=== PATIENT | male | born 1970 | race Caucasian/White ===

== ENCOUNTER 2016-09-03 07:30 | Emergency (ER) | payer OTHER ==
[~2016-09-03] VITALS: Ht 177.8 cm; Wt 79.4 kg
[2016-09-03] MEDS ORDERED: IV NORMAL SALINE 1000ML BAG 1,000 ML IV SCH (07:44)
--- NOTE | 2016-09-03 08:02 | PHYS DOC ---
Adult General Chief Complaint Chief Complaint: COUGH HPI HPI Patient is a 46 year old male who presents with complaint of cough, fever, and pleuritic chest pain. Patient states that his symptoms started 3 days ago. Patient states that he has had aches, chills, cough, and fatigue upon onset of symptoms. Patient states that he felt his symptoms were viral and tried taking Motrin to help. Patient states however over the past 24 hours he has developed worsening pain with cough which he states is across his chest. Patient states that the pain is severe when he coughs but states he is not having pain at rest. Patient denies any significant past medical history. Patient states that he has a child who had similar symptoms though not as severe as his presentation. Patient states that he had a fever of 102F at 0630 and took Motrin at that time. Review of Systems Review of Systems Constitutional: Fever, chills [] Eyes: Denies change in visual acuity, redness, or eye pain [] HENT: Sore throat [] Respiratory: Cough, denies shortness of breath [] Cardiovascular: Pleuritic chest pain, denies edema [] GI: Denies abdominal pain, nausea, vomiting, bloody stools or diarrhea [] : Denies dysuria or hematuria [] Musculoskeletal: Myalgias [] Integument: Denies rash or skin lesions [] Neurologic: Headache, denies focal weakness or sensory changes [] Current Medications Current Medications Current Medications Medications (Trade) Dose Ordered Sig/Zainab Start Time Stop Time Status Last Admin Dose Admin Ketorolac Tromethamine (Toradol) 30 mg 1X ONCE 09/03/16 08:15 09/03/16 08:16 DC 09/03/16 08:08 30 MG Sodium Chloride 1,000 ml @ 1,000 mls/hr Q1H 09/03/16 07:44 09/03/16 08:43 DC 09/03/16 07:58 1,000 MLS/HR Allergies Allergies Allergies Coded Allergies Type Severity Reaction Last Updated Verified No Known Drug Allergies 09/03/16 No Physical Exam Physical Exam Constitutional: Alert, febrile, diaphoretic, appears ill. [] HENT: Normocephalic, atraumatic, bilateral external ears normal, oropharynx erythematous, no oral exudates, nose normal. [] Eyes: PERRLA, EOMI, conjunctiva normal, no discharge. [] Neck: Normal range of motion, no tenderness, supple, no stridor. [] Cardiovascular:Heart rate regular rhythm, no murmur [] Lungs & Thorax: None restricted air movement bilaterally, minimal rales in left lower lobe, no wheezes [] Abdomen: Bowel sounds normal, soft, no tenderness, no masses, no pulsatile masses. [] Skin: Warm, diaphoretic, no erythema, no rash. [] Back: No tenderness, no CVA tenderness. [] Extremities: No tenderness, no cyanosis, no clubbing, ROM intact, no edema. [] Neurologic: Alert and oriented X 3, normal motor function, normal sensory function, no focal deficits noted. [] Current Patient Data Vital Signs Vital Signs Date Time Temp Pulse Resp B/P (MAP) Pulse Ox O2 Delivery O2 Flow Rate FiO2 09/03/16 08:19 66 22 125/65 (85) 96 Room Air 09/03/16 07:39 101.0 101.0 Lab Values Laboratory Tests Test 09/03/16 07:50 White Blood Count 5.7 x10^3/uL (4.0-11.0) Red Blood Count 4.95 x10^6/uL (4.30-5.70) Hemoglobin 15.4 g/dL (13.0-17.5) Hematocrit 45.6 % (39.0-53.0) Mean Corpuscular Volume 92 fL (79-100) Mean Corpuscular Hemoglobin 31 pg (25-35) Mean Corpuscular Hemoglobin Concent 34 g/dL (31-37) Red Cell Distribution Width 13.3 % (11.5-14.5) Platelet Count 117 x10^3/uL (140-400) L Neutrophils (%) (Auto) 86 % (31-73) H Lymphocytes (%) (Auto) 6 % (24-48) L Monocytes (%) (Auto) 8 % (0-9) Eosinophils (%) (Auto) 0 % (0-3) Basophils (%) (Auto) 0 % (0-3) Neutrophils # (Auto) 4.9 x10^3uL (1.8-7.7) Lymphocytes # (Auto) 0.3 x10^3/uL (1.0-4.8) L Monocytes # (Auto) 0.5 x10^3/uL (0.0-1.1) Eosinophils # (Auto) 0.0 x10^3/uL (0.0-0.7) Basophils # (Auto) 0.0 x10^3/uL (0.0-0.2) Segmented Neutrophils % 54 % (35-66) Band Neutrophils % 33 % (0-9) H Lymphocytes % 4 % (24-48) L Monocytes % 9 % (0-10) Platelet Estimate Adequate (ADEQUATE) Large Platelets D-Dimer (Riri) 0.40 ug/mlFEU (0.00-0.50) Sodium Level 139 mmol/L (136-145) Potassium Level 4.1 mmol/L (3.5-5.1) Chloride Level 104 mmol/L (98-107) Carbon Dioxide Level 24 mmol/L (21-32) Anion Gap 11 (6-14) Blood Urea Nitrogen 21 mg/dL (8-26) Creatinine 1.1 mg/dL (0.7-1.3) Estimated GFR (Cockcroft-Gault) 72.1 BUN/Creatinine Ratio 19 (6-20) Glucose Level 119 mg/dL (70-99) H Calcium Level 8.7 mg/dL (8.5-10.1) Magnesium Level 1.7 mg/dL (1.8-2.4) L Total Bilirubin 0.5 mg/dL (0.2-1.0) Aspartate Amino Transferase (AST) 41 U/L (15-37) H Alanine Aminotransferase (ALT) 61 U/L (16-63) Alkaline Phosphatase 55 U/L (46-116) Creatine Kinase 144 U/L (39-308) Creatine Kinase MB (Mass) 1.6 ng/mL (0.0-3.6) Creatine Kinase MB Relative Index 1.1 % (0-4) Troponin I Quantitative < 0.017 ng/mL (0.000-0.055) Total Protein 7.2 g/dL (6.4-8.2) Albumin 3.5 g/dL (3.4-5.0) Albumin/Globulin Ratio 0.9 (1.0-1.7) L Influenza Type A Antigen Negative (NEGATIVE) Influenza Type B Antigen Negative (NEGATIVE) Group A Streptococcus Rapid Negative (NEGATIVE) Laboratory Tests 09/03/16 07:50 Laboratory Tests 09/03/16 07:50 EKG EKG Interpreted by me: Heart rate 81, sinus rhythm, normal intervals, normal axis, no acute ST/T-wave abnormalities present [] Radiology/Procedures Radiology/Procedures [facility] [address] [place] [address] IMAGING REPORT Signed PATIENT: ZAHRA MELCHOR ACCOUNT: [id number] : 1970 LOCATION: ER AGE: 46 SEX: M EXAM STATUS: REG ER ORD. PHYSICIAN: ALBERTO PARDO MD REASON: chest pain with cough PROCEDURE: CHEST PA & LATERAL EXAM: CHEST 2 VIEWS History: Chest pain with cough COMPARISON: None available. TECHNIQUE: PA and lateral chest radiographs FINDINGS: The cardiomediastinal silhouette is within normal limits. The lungs are clear bilaterally. The costophrenic sulci are clear and well demarcated bilaterally. IMPRESSION: No radiographic evidence of an acute cardiopulmonary abnormality. DICTATED and SIGNED BY: MADINA COLON MD DATE: 09/03/16 0858 CC: MAUDE OATES; ALBERTO PARDO MD ~ [] Course & Med Decision Making Course & Med Decision Making Pertinent Labs and Imaging studies reviewed. (See chart for details) Patient started on IV fluids and given IV Toradol for symptoms. On reevaluation , patient's symptoms have improved. Patient's symptoms appear consistent with acute viral febrile illness. Patient's d-dimer and cardiac enzymes were unremarkable. Patient's chest x-ray does not reveal evidence of acute pneumonia. Patient's pain appears consistent with acute pleurisy. Patient will be started on Medrol Dosepak and patient was provided with a small prescription of Immaculata to help with pain and cough. Advised close follow-up with patient's primary doctor in 3-4 days and recommended return to the emergency department for any worsening symptoms. Patient voiced understanding and in agreement with treatment plan. Dragon Disclaimer Dragon Disclaimer This electronic medical record was generated, in whole or in part, using a voice recognition dictation system. Departure Departure Impression: Primary Impression: Pleurisy Additional Impression: Upper respiratory infection Disposition: HOME, SELF-CARE Condition: IMPROVED Referrals: MAUDE OATES (PCP) Patient Instructions: Pleurisy, Upper Respiratory Infection, Adult Additional Instructions: Follow-up to primary doctor in 3-4 days if symptoms are not improving. Return to the emergency department for any worsening symptoms. Scripts Hydrocodone/Apap 5-325 (NORCO 5-325 TABLET) 1 Each Tablet 1-2 TAB PO Q4-6HRS Y for COUGH, #15 TAB Prov: ALBERTO PARDO MD 09/03/16 Methylprednisolone (MEDROL) 4 Mg Tab.ds.pk 1 PKG PO UD, #1 PKG Prov: ALBERTO PARDO MD 09/03/16 Problem Qualifiers Additional Impression: Upper respiratory infection URI type: unspecified URI Qualified Codes: J06.9 - Acute upper respiratory infection, unspecified ALBERTO PARDO MD September 03, 2016 08:02
[2016-09-03 08:10] LABS: BASO % 0 % (0-3); EOS % 0 % (0-3); HEMATOCRIT 45.6 % (39.0-53.0); HEMOGLOBIN 15.4 g/dL (13.0-17.5); LYMPH # 0.3 x10^3/uL (1.0-4.8); LYMPH % 6 % (24-48); MEAN CORPUSCULAR HEMOGLOBIN 31 pg (25-35); MEAN CORPUSCULAR HGB CONC 34 g/dL (31-37); MEAN CORPUSCULAR VOLUME 92 fL (79-100); MONO % 8 % (0-9); NEUT % 86 % (31-73); PLATELET COUNT 117 x10^3/uL (140-400); RED BLOOD COUNT 4.95 x10^6/uL (4.30-5.70); RED CELL DISTRIBUTION WIDTH 13.3 % (11.5-14.5); WHITE BLOOD COUNT 5.7 x10^3/uL (4.0-11.0)
[2016-09-03] MEDS ORDERED: KETOROLAC TROMETHAMINE 30 MG/ML INJ. IV ONE (08:15)
[2016-09-03 08:19] VITALS: BP 125/65
[2016-09-03 08:23] LABS: OBC FLU VALID
[2016-09-03 08:34] LABS: CALCIUM 8.7 mg/dL (8.5-10.1); CKMB MASS 1.6 ng/mL (0.0-3.6); CREATININE 1.1 mg/dL (0.7-1.3); GFR 72.1; POTASSIUM 4.1 mmol/L (3.5-5.1)
[2016-09-03 08:37] LABS: ALBUMIN 3.5 g/dL (3.4-5.0); ALBUMIN/GLOBULIN RATIO 0.9 (1.0-1.7); MAGNESIUM 1.7 mg/dL (1.8-2.4); TOTAL BILIRUBIN 0.5 mg/dL (0.2-1.0); TOTAL PROTEIN 7.2 g/dL (6.4-8.2)
[2016-09-03 08:52] LABS: NEGATIVE OBC STREP NEG; POSITIVE OBC STREP POS
[2016-09-03] MEDS ORDERED: HYDR-971 PO (08:54)
[2016-09-03] MEDS ORDERED: METH4TAB2 PO (08:54)
--- NOTE | 2016-09-03 09:01 | RAD ---
EXAM: CHEST 2 VIEWS History: Chest pain with cough COMPARISON: None available. TECHNIQUE: PA and lateral chest radiographs FINDINGS: The cardiomediastinal silhouette is within normal limits. The lungs are clear bilaterally. The costophrenic sulci are clear and well demarcated bilaterally. IMPRESSION: No radiographic evidence of an acute cardiopulmonary abnormality.
[2016-09-03 09:53] LABS: PLT ESTIMATE ADEQUATE (ADEQUATE)
--- NOTE | 2016-09-03 13:01 | EKG ---
[facility] [address] [place] [address] Test Date: 2016-09-03 Test Time: 07:45:57 Pat Name: ZAHRA MELCHOR Department: Room: Gender: M [employer]: : 1970 Requested By: ALBERTO PARDO Order Number: [id number] Reading MD: Elbert Mcdonough Measurements Intervals [place] Rate: 81 P: 66 TN: 136 QRS: 46 QRSD: 78 T: 44 QT: 330 QTc: 384 Interpretive Statements SINUS RHYTHM Electronically Signed On 09-05-2016 9:55:12 CDT by Elbert Mcdonough
== END 2016-09-03 09:11 | disposition home or self-care (01) ==
LOC: ER 07:39
DX: R09.1 Pleurisy (principal); J06.9 Acute upper respiratory infection, unspecified; R61 Generalized hyperhidrosis
CPT/HCPCS: 36415; 71020; 80053; 82553; 83735; 84484; 85007; 85027; 85379; 87070; 87804; 87880; 93005; 96361; 96374; 99285; J1885; J7030

== ENCOUNTER → 2020-05-04 | Outpatient (CLI) | payer OTHER ==
[~2020-05-04] MED LIST: HYDR-3164 PO; METH4TAB2 PO
[2020-05-04 07:59] LABS: CALCIUM 8.7 mg/dL (8.5-10.1); GFR 79.1; POTASSIUM 4.4 mmol/L (3.5-5.1)
[2020-05-04 08:02] LABS: CHOLESTEROL/HDL RATIO 3.1
== END ==
LOC: LAB 07:07
PROVIDERS: ATTEND Family Medicine
DX: Z00.00 Encounter for general adult medical examination without abnormal findings (principal); Z12.5 Encounter for screening for malignant neoplasm of prostate; R35.1 Nocturia; Z13.220 Encounter for screening for lipoid disorders
CPT/HCPCS: 36415; 80048; 80061; 83721; 84153; G0103

== ENCOUNTER → 2020-06-11 | Day surgery (SDC) | payer OTHER ==
[~2020-06-11] MED LIST changes: +LIDOCAINE 2% PF 5 ML VIAL. ONE; +PROPOFOL 10 MG/ML (20ML) VIAL. IV ONE
[2020-06-11] MEDS: IV RINGERS,LACTATED 1000ML 1,000 ML IV SCH ×2 (06:35→06:36)
--- NOTE | 2020-06-11 07:43 | CONS ---
DATE OF CONSULTATION: 06/11/2020 PROCEDURE: Requested colorectal screening. HISTORY OF PRESENT ILLNESS: This is a 50-year-old male whose past medical history is noncontributory, is seen for screening colon. Bowel habits are regular without diarrhea or constipation. There has been no melena or hematochezia. Family history is unrevealing for colon polyps or colon cancer. Weight and appetite are stable. PAST MEDICAL HISTORY: Noncontributory. ALLERGIES: None. MEDICATIONS: None. FAMILY HISTORY: Significant for breast cancer with his father. SOCIAL HISTORY: Nondrinker, nonsmoker. PAST SURGICAL HISTORY: Noncontributory. REVIEW OF SYSTEMS: Per records. PHYSICAL EXAMINATION: VITAL SIGNS: Temperature is 97.8, pulse 52, respiratory rate is 18. LUNGS: Clear. CARDIOVASCULAR: Reveals an S1, S2 without S3, S4 or appreciable murmur. ABDOMEN: With a soft abdomen, normal bowel sounds, without appreciable hepatosplenomegaly. EXTREMITIES: No cyanosis, clubbing or edema. IMPRESSION: Colorectal screening is warranted at this time. Risks and benefits of procedure were discussed. The patient is willing to proceed. I would like to thank Dr. Eitan Barakat for allowing us to consult and participate in the patient's care. ZAHRA SANCHEZ MD DR: SHERLYN/eileen JOB#: [id number] / [id number]
[2020-06-11 07:44] VITALS: BP 102/62
== END | disposition home or self-care (01) ==
LOC: SURG 06:01
PROVIDERS: ATTEND Internal Medicine Gastroenterology
DX: Z12.11 Encounter for screening for malignant neoplasm of colon (principal); K64.8 Other hemorrhoids; Z79.899 Other long term (current) drug therapy; Z98.890 Other specified postprocedural states; Z72.89 Other problems related to lifestyle; Z20.822 Contact with and (suspected) exposure to COVID-19
CPT/HCPCS: 45380; 45385; 87426; C9803; J2704; U0003

== ENCOUNTER → 2021-03-30 | Outpatient (CLI) | payer OTHER ==
[2020-06-11 07:44] VITALS: BP 102/62
[~2021-03-30] MED LIST changes: -LIDOCAINE 2% PF 5 ML VIAL. ONE; -PROPOFOL 10 MG/ML (20ML) VIAL. IV ONE
--- NOTE | 2021-04-05 10:10 | PATHOLOGY ---
[facility] Accession Number: [id number] . 01 Material submitted: . face - FACIAL LESION . 01 Clinician provided ICD-10: L98.9 . 02 Diagnosis: Skin, face, punch biopsy: - Ruptured acneiform folliculitis. There is no evidence of malignancy (see comment). - Overlying neutrophilic scale. (SAS:[facility]; 04/05/2021) P 04/05/2021 0719 Local . 02 Comment: The case was evaluated with a deeper level as well as with a PAS stain for fungus, performed with an appropriate positive controls which shows a few pityrosporum yeast within the overlying neutrophilic scale but none in the hair follicle or the surrounding perifollicular inflammation. Sections do show a ruptured acneiform folliculitis. Due to the overlying neutrophilic scale, there also may be associated seborrheic dermatitis. There is no evidence of malignancy. (SAS:[facility]; 04/05/2021) . Special stain: PAS fungus: Negative. . 02 Electronically signed: . Ashely Haddad MD, Pathologist NPI- [id number] . 01 Gross description: . The specimen is received in formalin, labeled "Mera, Bruce, face". Received is a punch biopsy measuring 0.4 x 0.4 x 0.2 cm in greatest dimensions. The epidermal surface is pale zhu to red-brown and flaky in appearance. The surgical margin is inked. The specimen is bisected and entirely submitted in cassette A1. ([facility]; 03/31/2021) NRI/NRI 03/31/2021 2151 Local . 02 Pathologist provided ICD-10: L73.8 . 02 CPT . 098574, 031283 Specimen Comment: A courtesy copy of this report has been sent to [phone] Specimen Comment: Report sent to Performed at: 01 [facility] [address], [place], [place] [id number] MD Yakov Unger MD Phone: [phone] Performed at: [address] [place] [id number], [place], [place] [id number] MD Ashely Haddad MD Phone: [phone]
== END ==
LOC: SPEC 16:09
PROVIDERS: ATTEND Surgery
DX: L98.9 Disorder of the skin and subcutaneous tissue, unspecified (principal)
CPT/HCPCS: 88305; 88312

== ENCOUNTER → 2021-06-06 | Outpatient (CLI) | payer OTHER ==
[2020-06-11 07:44] VITALS: BP 102/62
[2021-06-06 08:40] LABS: CALCIUM 8.5 mg/dL (8.5-10.1); GFR 78.8; POTASSIUM 4.2 mmol/L (3.5-5.1)
[2021-06-07 05:12] LABS: HEMOGLOBIN A1C 5.5 % (4.8-5.6)
== END ==
LOC: LAB 07:34
PROVIDERS: ATTEND Family Medicine
DX: Z12.5 Encounter for screening for malignant neoplasm of prostate (principal); R73.09 Other abnormal glucose
CPT/HCPCS: 36415; 80048; 83036; G0103